=== PATIENT | female | born 1985 | race Caucasian/White ===

== ENCOUNTER → 2016-07-06 | Outpatient (CLI) | payer OTHER ==
[~2016-07-06] MED LIST: PRENTAB26 PO
== END | disposition home or self-care (01) ==
LOC: C.LABSPEC 15:25
PROVIDERS: ATTEND Obstetrics & Gynecology
DX: Z34.83 Encounter for supervision of other normal pregnancy, third trimester (principal)

== ENCOUNTER 2016-08-05 22:06 | Inpatient (IN) | payer OTHER ==
[~2016-08-05] VITALS: Ht 167.6 cm; Wt 93.6 kg
[2016-08-07] MEDS ORDERED: LACTATED RINGER'S 1000ML 1,000 ML IV SCH (11:07)
[2016-08-07] MEDS ORDERED: LACTATED RINGER'S 1000ML 1,000 ML IV PRN (11:07)
[2016-08-07] MEDS ORDERED: PENICILLIN G POTASSIUM IV 6 MU in DEXTROSE 5% 250ML 250 ML IV SCH (11:30)
[2016-08-07] MEDS ORDERED: PENICILLIN G POTASSIUM IV 6 MU in DEXTROSE 5% 250ML 250 ML IV ONE (11:45)
[2016-08-07] MEDS ORDERED: PENICILLIN G POTASSIUM IV 3 MU in DEXTROSE 5% 100ML 100 ML IV PRN (11:45)
[2016-08-07] MEDS ORDERED: MISOPROSTOLTAB 50 MCG TAB PO ONE (12:00)
[2016-08-07 12:10] LABS: HEMATOCRIT 35.2 % (37-47); MEAN CELL VOLUME 87.1 fL (80-100); MEAN CORPUSCULAR HGB CONC 34.4 g/dl (32-36); MEAN PLATELET VOLUME 11.8 fL (7.4-10.4); PLATELET COUNT 155 K/uL (130-400); RED BLOOD COUNT 4.04 M/uL (4.2-5.4); WHITE BLOOD COUNT 12.66 K/uL (4.8-10.8)
[2016-08-07 16:12] VITALS: Ht 167.6 cm; Wt 93.6 kg
[2016-08-07] MEDS: PENICILLIN G POTASSIUM IV 3 MU in DEXTROSE 5% 100ML 100 ML IV PRN ×2 (16:47→20:42)
[2016-08-07] MEDS ORDERED: PRENTAB26 PO (16:57)
[2016-08-07] MEDS ORDERED: BUTORPHANOL TARTRATE 1 MG/ML VIAL IV PRN (17:30)
[2016-08-07] MEDS ORDERED: ONDANSETRON INJ 2 MG/ML 2 ML VIAL ONE (19:13)
[2016-08-07] MEDS ORDERED: NURSING VERBAL MED ORDER ONE (19:30)
[2016-08-07] MEDS ORDERED: ONDANSETRON INJ 2 MG/ML 2 ML VIAL IV PRN (19:30)
[2016-08-07] MEDS ORDERED: LACTATED RINGER'S 1000ML 500 ML IV PRN ×2 (21:33→23:48)
[2016-08-07] MEDS ORDERED: OXYTOCIN 30 UNITS/500ML NSS IV PRN (21:45)
[2016-08-07] MEDS ORDERED: EpHEDrine SULFATE INJ 50 MG/ML AMP ONE (22:53)
[2016-08-07] MEDS ORDERED: BUPIVACAINE 0.25% 30 ML VIAL ONE (22:53)
[2016-08-07] MEDS ORDERED: FENTANYL 2MCG/ML ROPIV 1.25MG/ML 100ML BAG EPI ONE (22:54)
[2016-08-07] MEDS ORDERED: FENTANYL CITRATE INJ 50 MCG/1 ML 2 ML VIAL ONE (22:54)
[2016-08-08] MEDS ORDERED: DiphenhydrAMINE HCL 50 MG/ML VIAL IV PRN
[2016-08-08] MEDS ORDERED: ONDANSETRON INJ 2 MG/ML 2 ML VIAL IV PRN
[2016-08-08] MEDS ORDERED: NALBUPHINE HCL INJ 10 MG/ML AMP IV PRN
[2016-08-08] MEDS ORDERED: FENTANYL 2MCG/ML ROPIV 1.25MG/ML 100ML BAG EPI PRN
[2016-08-08] MEDS ORDERED: NALOXONE HCL INJ 0.4 MG/1 ML VIAL/CARP IV PRN
[2016-08-08] MEDS: EpHEDrine SULFATE INJ 50 MG/ML AMP IV PRN ×2 (00:35)
[2016-08-08] MEDS: PENICILLIN G POTASSIUM IV 3 MU in DEXTROSE 5% 100ML 100 ML IV PRN (01:03)
[2016-08-08] MEDS ORDERED: ACETAMINOPHEN 325 MG TAB PO PRN (02:30)
[2016-08-08] MEDS ORDERED: ACETAMINOPHEN/CODEINE 300/30MG TAB PO PRN ×2 (02:30)
[2016-08-08] MEDS ORDERED: OXYTOCIN 30 UNITS/500ML NSS IV PRN (02:30)
[2016-08-08] MEDS ORDERED: DIPHTHERIA/TETANUS/PERTUSSIS 0.5 ML SYR/VIAL IM. ONE (02:30)
[2016-08-08] MEDS ORDERED: BENZOCAINE 20% AER SPR 82.5 GM CAN EXT PRN (02:30)
[2016-08-08] MEDS ORDERED: HYDROCORTISONE ACETATE 25 MG SUPP PR PRN (02:30)
[2016-08-08] MEDS ORDERED: LANOLIN OINT EXT PRN ×2 (02:30)
[2016-08-08] MEDS ORDERED: OXYCODONE/ACETAMINOPHEN 5-325 TAB PO PRN (02:30)
[2016-08-08] MEDS ORDERED: SUPERCREAM 0.870 % 15GM JAR EXT PRN (02:30)
--- NOTE | 2016-08-08 07:36 | OPERATIVE REPORT ---
DATE OF OPERATION: 08/08/2016 DELIVERY NOTE: The patient is a 30-year-old, 2, para 1. She had one previous spontaneous AB. Her blood type is O positive. She is rubella immune. Due date is 08/05/2016. She was admitted in active labor through the office. She had edmundo rupture of membranes. She was screened beta strep positive. She was admitted to maternity. IV was started. She was started on prophylactic penicillin. She got 6 million loading dose and then several doses after that; 3 million every four hours. She had infrequent, mild contractions on admission. She was given Cytotec p.o. 50 mcg. With this, she started in a fairly good labor contraction pattern. Eventually, about 9:00 p.m. the day of admission I examined her; she was about 6 cm and I started her on IV Pitocin augmentation. An hour or so after that, she requested and received the first dose of Stadol and then epidural. She obtained good pain relief from the epidural and with the IV Pitocin running, contractions every 3 minutes. She went to full dilatation, pushed out a live male infant via direct occiput anterior position over an intact perineum. Infant was suctioned through the mouth and the nose. After delivery of the head, the body was delivered without difficulty. Cord was clamped, cut by the father. Cord blood was taken for cord blood banking. With IV Pitocin running, the placenta was removed intact. She had 2 superficial lacerations of the labia minora. These were both repaired with a running 2-0 Vicryl. She had a superficial vaginal laceration at the introitus at 10 o'clock and this was controlled with one [id number] suture of 2-0 Vicryl due to bleeding. Then she had another laceration at 4 o'clock in the vaginal opening; this was also controlled with a running 2-0 Vicryl. Following this, vaginal examination revealed no hematoma formation or sponges in the vagina. A Muse catheter was used to empty the bladder. Estimated blood loss was 500 mL. Apgars were estimated at 8 and 9 respectively. I attest to the content of the Intraoperative Record and any orders documented therein. Any exceptio ns are noted below.
[2016-08-08 08:00] VITALS: BP 105/67; PULSE 86; TEMP 36.7; O2SAT 96
--- NOTE | 2016-08-08 08:11 | Anesthesia Procedure Note ---
Anesthesia Epidural Removal Nt Date & Time Aug 08, 2016 at 08:11 Vital Signs Pain Intensity: 5.0 Notes Mental Status: alert / awake / arousable, participated in evaluation Nausea / Vomiting: adequately controlled Pain: adequately controlled Airway Patency, RR, SpO2: stable & adequate BP & HR: stable & adequate Hydration State: stable & adequate Neuraxial Anesthesia: was administered Anesthetic Complications: no major complications apparent, pt satisfied with anesthetic care Epidural: removed without complications, with tip intact
[2016-08-08] MEDS: FERROUS SULFATE 325 MG TAB PO SCH (08:49)
[2016-08-08] MEDS: PRENATAL VITAMIN TAB PO SCH (08:49)
[2016-08-08] MEDS: DOCUSATE SODIUM 100 MG CAP PO SCH ×2 (08:50→20:13)
[2016-08-08] MEDS: IBUPROFEN 600 MG TAB PO PRN ×3 (11:34→21:40)
[2016-08-08 11:35] VITALS: BP 112/65; PULSE 73; TEMP 36.6; O2SAT 100
[2016-08-08 15:35] VITALS: BP 125/73; PULSE 89; TEMP 36.7
[2016-08-08 20:20] VITALS: BP 117/74; PULSE 86; TEMP 36.7
[2016-08-09 00:30] VITALS: BP 110/69; PULSE 88; TEMP 36.4
[2016-08-09] MEDS: IBUPROFEN 600 MG TAB PO PRN ×3 (02:50→20:04)
[2016-08-09 07:55] LABS: HEMATOCRIT 32.7 % (37-47)
[2016-08-09 08:00] VITALS: BP 98/63; PULSE 74; TEMP 36.4
[2016-08-09] MEDS: PRENATAL VITAMIN TAB PO SCH (09:11)
[2016-08-09] MEDS: DOCUSATE SODIUM 100 MG CAP PO SCH ×2 (09:11→20:04)
[2016-08-09] MEDS: FERROUS SULFATE 325 MG TAB PO SCH (09:11)
--- NOTE | 2016-08-09 10:41 | Progress Note ---
Subjective Aug 09, 2016. Subjective conversation w/ patient Ambulation: ambulating normally Voiding: no voiding problems Passing Gas: Yes Diet Tolerance: Regular Diet Lochia: Small Feeding Type: Breast Feeding Review of Systems Constitutional: + fever Objective Vital Signs Date Time Temp Pulse Resp B/P Pulse Ox O2 Delivery O2 Flow Rate FiO2 08/09/16 08:00 36.4 74 18 98/63 Room Air 08/09/16 07:30 Room Air 08/09/16 00:30 36.4 88 18 110/69 Room Air 08/09/16 00:30 Room Air 08/08/16 20:20 36.7 86 18 117/74 Room Air 08/08/16 15:35 Room Air 08/08/16 15:35 36.7 89 18 125/73 Room Air 08/08/16 11:35 36.6 73 18 112/65 100 Room Air Physical Exam General Appearance: WELL-APPEARING Respiratory/Chest: lungs clear Abdomen: non tender Fundus: Firm, Non-Tender Extremities: no pedal edema, no calf tenderness Laboratory Results Last 24 Hours Test 08/09/16 07:45 Hemoglobin 11.0 g/dL Hematocrit 32.7 % Assessment and Plan Post- Day#: 1
[2016-08-09] MEDS ORDERED: BISACODYL 5 MG TABEC PO SCH (20:00)
[2016-08-09 23:45] VITALS: BP 104/68; PULSE 73; TEMP 36.6
[2016-08-10] MEDS: IBUPROFEN 600 MG TAB PO PRN ×2 (04:40→08:41)
[2016-08-10] MEDS ORDERED: BISACODYL 10 MG SUPP PR PRN (07:00)
[2016-08-10 07:30] VITALS: BP 122/57; PULSE 77; TEMP 36.4; O2SAT 100
--- NOTE | 2016-08-10 08:34 | Progress Note ---
Subjective Aug 10, 2016. Subjective conversation w/ patient Ambulation: ambulating normally Voiding: no voiding problems Passing Gas: Yes Diet Tolerance: Regular Diet Lochia: Small Feeding Type: Breast Feeding Review of Systems Constitutional: + fever Objective Vital Signs Date Time Temp Pulse Resp B/P Pulse Ox O2 Delivery O2 Flow Rate FiO2 08/10/16 07:30 36.4 77 18 122/57 100 Room Air 08/10/16 07:30 100 Room Air 08/09/16 23:45 36.6 73 18 104/68 08/09/16 23:45 Room Air 08/09/16 17:27 Room Air Physical Exam General Appearance: WELL-APPEARING Abdomen: non tender Fundus: Firm, Non-Tender Extremities: no pedal edema, no calf tenderness Assessment and Plan Post- Day#: 2
--- NOTE | 2016-08-10 08:36 | Discharge Instructions ---
Discharge Instructions Date of Service Aug 10, 2016. Admission Reason for Admission: IUP Discharge Discharge Diagnosis / Problem: active labor Discharge Goals Goal(s): Routine recovery after delivery Activity Recommendations Activity Limitations: as noted below ACTIVITY RECOMMENDATIONS: * Gradual return to full activity over the next 2-3 weeks. * No lifting - nothing heavier than baby over the next 2-3 weeks. * Do not engage in vigorous exercise, sexual activity or sports until cleared by your physician. * Do not drive or operate any motorized equipment until cleared by your physician. * You may shower/bathe daily. DIET: Resume Previous Diet If Breast-feeding: * Increase caloric intake by 500 calories, eat 3 well balanced meals, 2 high protein snacks a day and drink 6-8 8oz. glasses of fluid per day. BREAST CARE: If you are not breast feeding: * Wear a supportive bra 24 hours a day for one to two weeks. * Avoid stimulating your breasts and nipples as much as possible during the first few weeks after delivery. * When taking a shower, have the warm water hit your back, not breasts. * When your breasts feel full, apply ice packs. Usually three to four times a day helps ease the discomfort. * Take a mild pain medication (Tylenol / Motrin) when you are uncomfortable. If breast feeding: * Use breast milk to lubricate nipples. Lansinoh cream may be used for sore nipples. You do not need to remove cream prior to breast feeding. If using a different brand of cream, check the label for directions regarding removal of cream prior to nursing. * Wear a supportive bra. * If having problems with breasts or breast feeding, call a quality compliance consultant or your health care provider. OVER THE COUNTER MEDICATION: * For discomfort or pain, you may use Acetaminophen (Tylenol), Ibuprofen (Advil ), or Naproxen (Aleve) following the package directions. * For constipation you may use Colace following the package directions. SPECIAL CARE INSTRUCTIONS: * Vaginal rest (no tampons, douching, intercourse) until after doctor 's visit. * control as discussed with doctor. * Verbalizes understanding of car seat law as reviewed with patient nursing. * Car Seat hand-out given and reviewed with patient by nursing. * Shaken baby information reviewed with patient by nursing. Call you doctor if: * Temperature greater than or equal to 100.4 degrees F or 38.0 degrees C. Take your temperature twice daily for a week. * Bleeding becomes heavier than the heaviest part of your period - saturating a sanitary pad within an hour. * Passing large clots. * Bleeding has a foul smelling odor. * Signs and symptoms of phlebitis: leg pain, warm, red or swollen area on leg. * "Baby Blues" lasting longer than two weeks. ++ If you have had a and incision has increased pain, redness, swelling, presence of any drainage, or if the incision starts to open up. If you have any questions or concerns, call your health care practitioner at [phone]. FOLLOW-UP VISIT: Please call the office at to schedule a 6 week examination. . Current Hospital Diet Patient's current hospital diet: Regular OB Diet Discharge Diet Recommended Diet: Regular Diet Pending Studies Studies pending at discharge: no Medical Emergencies . Who to Call and When: Medical Emergencies: If at any time you feel your situation is an emergency, please call 911 immediately. . Non-Emergent Contact Non-Emergency issues call your: Felt Finishing Supervisor Call Non-Emergent contact if: temperature is above 100.5 . . "Provider Documentation" section prepared by Clive New. VTE Core Measure Inpt VTE Proph given/why not?: Treatment not indicated
[2016-08-10] MEDS: DOCUSATE SODIUM 100 MG CAP PO SCH (08:40)
[2016-08-10] MEDS: FERROUS SULFATE 325 MG TAB PO SCH (08:40)
[2016-08-10] MEDS: PRENATAL VITAMIN TAB PO SCH (08:40)
[2016-08-10 10:31] VITALS: BP_DIAS 57; PULSE 77; TEMP 36.4
--- NOTE | 2016-08-11 15:16 | EDITING REQUIRED CODING QUERY ---
CODING QUERY To promote full compliance with coding requirements relating to patient care, provider participation is requested in all cases of bounty trapper uncertainty. Please assist us with the question(s) below: Dear Dr. New, Coding Question(s): Vaginal laceration at 4 o'clock vaginal opening? ( ) Vaginal - High Wall ( ) Vaginal with Perineal laceration ( x ) Perineal 1st degree laceration ( ) Perineal 2nd degree laceration ( ) Other: Please explain Medical documentation: She had 2 superficial lacerations of the labia minora. These were both repaired with a running 2-0 Vicryl. She had a superficial vaginal laceration at the introitus at 10 o'clock and this was controlled with one [id number] suture of 2-0 Vicryl due to bleeding. Then she had another laceration at 4 o'clock in the vaginal opening; this was also controlled with a running 2-0 Vicryl. Physician's Response(s): Thank you for your time. Liliana Renteria [facility] Principal Diagnosis: "_that condition established after study, to be chiefly responsible for occasioning the admission of the patient to the hospital for care." Co-Existing Principal Diagnosis: "_when two or more diagnoses equally meet the criteria for principal diagnosis as determined by the circumstances of admission, diagnostic work up, and/or therapy provided, and the Alphabetic Index, Tabular List, or another coding guideline does not provide sequencing direction, any one of the diagnoses may be sequenced first." "When the physician has documented what appears to be a current diagnosis in the body of the record, but has not included the diagnosis in the final diagnostic statement, the physician should be asked whether the diagnosis should be added." (Source Coding [facility] 2 QTR90. p3-4)
== END 2016-08-10 10:45 | disposition home or self-care (01) | DRG 775 ==
LOC: C.LD 08-07 11:01 → C.MS4N 08-08 06:58
PROVIDERS: ADMIT Obstetrics & Gynecology; ATTEND Obstetrics & Gynecology
PROC: 0HQ9XZZ Repair Perineum Skin, External Approach (ICD-10-PCS; principal; 2016-08-08)
PROC: 10E0XZZ Delivery of Products of Conception, External Approach (ICD-10-PCS; principal; 2016-08-08)
DX: O48.0 Post-term pregnancy (principal); Z37.0 Single live birth; O70.0 First degree perineal laceration during delivery; O99.824 Streptococcus B carrier state complicating childbirth; O42.02 Full-term premature rupture of membranes, onset of labor within 24 hours of rupture; Z3A.40 40 weeks gestation of pregnancy

== ENCOUNTER → 2016-10-02 | Outpatient (CLI) | payer OTHER | END | disposition home or self-care (01) | LOC: C.PAPS 15:53 | PROVIDERS: ATTEND Obstetrics & Gynecology | DX: Z39.2 Encounter for routine postpartum follow-up (principal) ==

== ENCOUNTER → 2017-12-07 | Outpatient (CLI) | payer OTHER | END | disposition home or self-care (01) | LOC: C.PAPS 17:59 | PROVIDERS: ATTEND Obstetrics & Gynecology | DX: Z12.4 Encounter for screening for malignant neoplasm of cervix (principal) ==

== ENCOUNTER 2018-12-04 10:37 | Inpatient (IN) ==
[2018-12-04] MEDS ORDERED: PENICILLIN G POTASSIUM 6 MU in DEXTROSE 5% 250 ML IV STA (11:18)
[2018-12-04] MEDS ORDERED: OXYTOCIN 30 UNITS/500 ML BAG IV PRN ×2 (11:18→20:14)
[2018-12-04] MEDS: LACTATED RINGER'S 1,000 ML IV PRN ×2 (11:40→23:30)
[2018-12-04 11:44] LABS: Hematocrit (blood only) 36.7 % (37-47); Hemoglobin 12.6 g/dL (12.0-16.0); Mean Corpuscular Volume 89.1 fL (80-100); Mean Platelet Volume 11.9 fL (7.4-10.4); Platelet Count 147 K/uL (130-400); RDW Coefficient of Variation 13.2 % (11.5-14.5); RDW Standard Deviation 42.9 fL (36.4-46.3); Red Blood Count 4.12 M/uL (4.2-5.4); White Blood Count 10.39 K/uL (4.8-10.8)
[2018-12-04] MEDS ORDERED: miSOPROStol 50 MCG TAB PO ONE ×2 (11:46→17:30)
[2018-12-04 11:47] LABS: Mean Corpuscular Hgb Conc 34.3 g/dL (32-36)
[2018-12-04] MEDS: PENICILLIN G POTASSIUM 3 MU in DEXTROSE 5% 100 ML IV PRN ×2 (16:33→20:38)
[2018-12-04] MEDS ORDERED: fentaNYL citrate 100 MCG/2 ML VIAL ONE (22:37)
[2018-12-04] MEDS ORDERED: ePHEDrine sulfate 50 MG/ML AMP ONE (22:37)
[2018-12-04] MEDS ORDERED: BUPIVACAINE 0.25% 30 ML VIAL ONE (22:37)
[2018-12-04] MEDS ORDERED: fentaNYL 2MCG/ML ROPIV 1.25MG/ML 100 ML BAG EPI ONE (22:38)
[2018-12-04] MEDS ORDERED: NALBUPHINE HCL INJ 10 MG/ML AMP IV PRN (23:11)
[2018-12-04] MEDS ORDERED: DiphenhydrAMINE HCL 50 MG/ML VIAL IV PRN (23:11)
[2018-12-04] MEDS ORDERED: NALOXONE HCL 0.4 MG/1 ML VIAL/CARP IV PRN (23:11)
[2018-12-04] MEDS ORDERED: ONDANSETRON INJ 2 MG/ML 2 ML VIAL IV PRN (23:11)
[2018-12-04] MEDS ORDERED: NALOXONE HCL 1 MG in SODIUM CHLORIDE 0.9% 1000ML 1,000 ML IV PRN (23:11)
[2018-12-04] MEDS ORDERED: ePHEDrine sulfate 50 MG/ML AMP IV PRN (23:11)
[2018-12-04] MEDS ORDERED: fentaNYL 2MCG/ML ROPIV 1.25MG/ML 100 ML BAG EPI PRN (23:11)
--- NOTE | 2018-12-04 23:15 | Anesthesiology Consultation ---
Date of Service December 04, 2018 Assessment & Plan Chart Review Chart Review: Patient NOT seen in Pre Admission Testing and Acceptable Risk for Labor Epidural Consults Requested none ASA ASA2 Proposed Anesthesia Anesthesia Type: Labor Epidural and CSE Risk / Benefits Reviewed With: PT / POA / Parent / Guardian, Accepts Plan and Informed Consent Obtained History Height/Weight Height: 5 ft 5 in Weight: 94.347 kg Allergies Allergy/AdvReac Type Severity Reaction Status Date / Time No Known Allergies Allergy Verified 12/04/18 12:14 Medications Home Medications Medication Instructions Recorded Confirmed Last Taken docusate sodium [Colace] 100 mg PO DAILY 12/04/18 12/04/18 Unknown vit no.[id number] 1 tab PO HS 12/04/18 12/04/18 12/03/18 20:00 [ Vitamin] Active Medications Generic Name Dose Route Start Last Admin Trade Name Freq PRN Reason Stop Dose Admin Lactated Ringer's 1,000 mls @ 125 mls/hr 12/04/18 11:18 12/04/18 22:32 Lr IV 12/06/18 11:17 999 mls/hr .Q8H PRN Infusion L&D Protocol Protocol Penicillin G Potassium 3 mu/ 106 mls @ 100 mls/hr 12/04/18 11:30 12/04/18 21:54 Dextrose IV 12/14/18 11:29 Infused Q4H PRN Infusion for GBS positive mother Protocol Oxytocin 30 units in 500 mls @ 2 mls/hr 12/04/18 20:14 12/04/18 22:16 Pitocin IV 12/06/18 20:13 0.12 units/hr .Q24H PRN 2 mls/hr Labor Induction/Augmentation Administration Protocol 0.12 UNITS/HR NPO Date Last Intake of Fluids: 12/04/18 Time Last Intake of Fluids: 22:00 Date Last Intake of Solids: 12/04/18 Time Last Intake of Solids: 10:00 Exercise / Class Metabolic Activity II 4-5 Yardwork/Stairs/Walk up hill Past Surgical History Surgical History History of nasal surgery History of tonsillectomy Past Anesthesia History No Hx of Anesthesia Complications and No Family Hx of Anesthesia Complications History of PONV No Hx of PONV and Hx of Motion Sickness Social History Smoking Status: Never smoker Hx Alcohol Use: No Hx Substance Use: No Review of Systems no chest pain or sob Physical Exam Vital Signs Last Vital Signs Temp 36.6 C 12/04/18 21:16 Pulse 72 12/04/18 23:12 Resp 20 12/04/18 19:00 BP 118/76 12/04/18 22:23 Pulse Ox 98 12/04/18 23:12 ENMT Mouth: no TMJ abnormality Thyromental Distance: > or= 3.5 Finger Breadths Mallampati Class: II Neck normal visual inspection Respiratory normal respiratory effort Auscultation: lungs clear to auscultation bilaterally Cardiovascular Rate/Rhythm: regular rate and regular rhythm Musculoskeletal Spine: normal cervical ROM Neurologic moves all extremities Psychiatric Orientation: alert and oriented x 3 Testing Laboratory Results 12/04/18 11:26
[2018-12-05] MEDS: PENICILLIN G POTASSIUM 3 MU in DEXTROSE 5% 100 ML IV PRN (00:47)
[2018-12-05] MEDS ORDERED: SUPERCREAM 0.870% 15 GM JAR EXT PRN (02:46)
[2018-12-05] MEDS ORDERED: DIPHTHERIA/TETANUS/PERTUSSIS 0.5 ML SYR/VIAL IM ONE (02:46)
[2018-12-05] MEDS ORDERED: BISACODYL 10 MG SUPP PR PRN (02:46)
[2018-12-05] MEDS ORDERED: ACETAMINOPHEN 325 MG TAB PO PRN (02:46)
[2018-12-05] MEDS ORDERED: OXYTOCIN 30 UNITS/500 ML BAG IV PRN (02:46)
[2018-12-05] MEDS ORDERED: IBUPROFEN 600 MG TAB PO PRN (02:46)
[2018-12-05] MEDS ORDERED: HYDROCORTISONE ACETATE 25 MG SUPP PR PRN (02:46)
[2018-12-05] MEDS ORDERED: OXYCODONE/ACETAMINOPHEN 5mg/325mg TAB PO PRN (02:46)
[2018-12-05] MEDS ORDERED: ACETAMINOPHEN W/CODEINE #3 1 TAB PO PRN (02:46)
[2018-12-05] MEDS ORDERED: BENZOCAINE 20% AER SPR 82.5 GM CAN EXT PRN (02:46)
--- NOTE | 2018-12-05 03:43 | Anesthesia Procedure Note ---
Date of Service December 05, 2018 Anesthesia Post Epidural Note Vital Signs Vital Signs: Temp Pulse Resp BP Pulse Ox 36.6 C 89 18 107/56 L 98 12/05/18 01:14 12/05/18 03:37 12/05/18 03:33 12/05/18 03:33 12/05/18 03:37 Notes Mental Status: alert / awake / arousable and participated in evaluation Nausea / Vomiting: adequately controlled Pain: adequately controlled Airway Patency, RR, SpO2: stable & adequate BP & HR: stable & adequate Hydration State: stable & adequate Neuraxial Anesthesia: was administered and sensory block is resolving Anesthetic Complications: no major complications apparent and Pt Satisfied with anesthetic care Epidural: Removed without complications and With tip intact
[2018-12-05] MEDS: PRENATAL VITAMIN 1 TAB PO SCH (08:29)
[2018-12-05] MEDS: DOCUSATE SODIUM 100 MG CAP PO SCH ×2 (08:29→20:58)
--- NOTE | 2018-12-05 08:47 | Delivery Summary ---
DATE OF OPERATION: 12/05/2018 DELIVERY NOTE: This is a 33-year-old 3, para 1, 1 previous spontaneous AB. General health is good. Blood type is O positive, rubella immune. Her due date is 12/03/2018. She did screen strep positive. She was admitted on 04 of December in the morning with edmundo rupture of membranes. She was started on penicillin and she was also started on p.o. Cytotec. She eventually received 2 doses of p.o. Cytotec, then epidural anesthesia for pain control from which she obtained good relief. Then, she was started on IV Pitocin. On the IV Pitocin, she dilated; however, the Pitocin had to be turned back because of decelerations, they resolved spontaneously after stopping the IV Pitocin. She eventually went to full dilatation and about 4 pushes, pushed out a live male via direct occiput anterior position over an intact perineum. was suctioned through the mouth and the nose. Body was delivered without difficulty. Cord was clamped and cut by the father. Cord blood was taken. With IV Pitocin running, the placenta was removed intact. Inspection of the perineum revealed no lacerations. Estimated blood loss was 100 mL. The patient tolerated the procedure well. I attest to the content of the Intraoperative Record and any orders documented therein. Any exception s are noted below.
[2018-12-06 06:50] LABS: Hematocrit (blood only) 35.2 % (37-47); Mean Corpuscular Hgb Conc 34.1 g/dL (32-36); Mean Corpuscular Volume 89.3 fL (80-100); Mean Platelet Volume 11.6 fL (7.4-10.4); Platelet Count 129 K/uL (130-400); RDW Coefficient of Variation 13.5 % (11.5-14.5); RDW Standard Deviation 44.3 fL (36.4-46.3); Red Blood Count 3.94 M/uL (4.2-5.4); White Blood Count 10.69 K/uL (4.8-10.8)
[2018-12-06] MEDS: DOCUSATE SODIUM 100 MG CAP PO SCH (09:13)
[2018-12-06] MEDS: PRENATAL VITAMIN 1 TAB PO SCH (09:13)
--- NOTE | 2018-12-06 10:59 | Obstetrical Progress Note ---
Date of Service December 06, 2018 Physical Exam Physical Exam: abdomen soft and non tender vaginal bleeding scant to moderate ambulating well hgb 12.0 no calf tenderness Results & Data Vital Signs (Past 12 Hours) Vital Signs Temp Pulse Pulse Resp BP 12/05/18 23:20 36.4 C L 78 78 18 123/73
[2018-12-06] MEDS ORDERED: BISACODYL 5 MG TABEC PO SCH (20:00)
== END 2018-12-06 16:10 | disposition home or self-care (01) | DRG 807 ==
LOC: OPB 10:37 → 4S1 10:38 → 4S2 12-05 05:43